=== PATIENT | female | born 1995 | race American Indian/Alaskan Native ===

== ENCOUNTER 2021-07-18 15:45 | Emergency (ER) | payer BC ==
[2021-07-18 16:30] VITALS: BP 109/70
--- NOTE | 2021-07-18 16:51 | Emergency Department Report ---
ED Female HPI - General Chief complaint: Urogenital-Female Stated complaint: UTI Time Seen by Provider: 07/18/21 16:40 Source: patient Mode of arrival: Ambulatory Limitations: No Limitations - History of Present Illness Initial comments: 26-year-old female presents to the ER today with complaints of vaginal discharge. Patient states that the symptoms started couple days ago. She describes the discharge as a white discharge. She denies any dysuria, hematuria, urinary frequency or any abnormal vaginal bleeding. She states that she only has 1 sexual partner. She states that she is not concerned for STD. She states that her last menstrual cycle was May 31, 2021. She states that she does not think she is but yet has not taken a home test. She is not currently on control. She reports no pelvic or abdominal pain or back pain, fever, chills, nausea or vomiting. MD Complaint: vaginal discharge -: days(s) (2) - Related Data Previous Rx's Medication Instructions Recorded Last Taken Type Fluconazole [Diflucan TAB] 200 mg PO QDAY #2 tablet 07/18/21 Unknown Rx Sulfamethoxazole/Trimethoprim 1 each PO BID #10 tab 07/18/21 Unknown Rx [Bactrim DS TAB] metroNIDAZOLE [Flagyl] 500 mg PO Q12HR #14 tab 07/18/21 Unknown Rx ED Review of Systems ROS: Stated complaint: UTI Other details as noted in HPI Comment: All other systems reviewed and negative Eyes: denies: eye pain, eye discharge, vision change ENT: denies: ear pain, throat pain Respiratory: denies: cough, shortness of breath, SOB with exertion, SOB at rest, wheezing Cardiovascular: denies: chest pain, palpitations Gastrointestinal: denies: abdominal pain, nausea, vomiting, diarrhea, constipation, hematemesis, melena, hematochezia Genitourinary: discharge. denies: urgency, dysuria, frequency, hematuria, abnormal menses, dyspareunia Musculoskeletal: denies: back pain, joint swelling, arthralgia Skin: denies: rash, lesions, change in color, change in hair/nails, pruritus Neurological: denies: headache, weakness, numbness, paresthesias, confusion, abnormal gait, vertigo ED Past Medical Hx - Past Medical History Previous Medical History?: No - Surgical History Past Surgical History?: No - Social History Smoking Status: Never Smoker Substance Use Type: None - Medications Home Medications: Home Medications Medication Instructions Recorded Confirmed Last Taken Type Fluconazole [Diflucan TAB] 200 mg PO QDAY #2 tablet 07/18/21 Unknown Rx Sulfamethoxazole/Trimethoprim 1 each PO BID #10 tab 07/18/21 Unknown Rx [Bactrim DS TAB] metroNIDAZOLE [Flagyl] 500 mg PO Q12HR #14 tab 07/18/21 Unknown Rx ED Physical Exam - General Limitations: No Limitations General appearance: alert, in no apparent distress - Head Head exam: Present: atraumatic, normocephalic, normal inspection - Eye Eye exam: Present: normal appearance, PERRL, EOMI Pupils: Present: normal accommodation - Respiratory Respiratory exam: Absent: respiratory distress - Cardiovascular Cardiovascular Exam: Present: regular rate - GI/Abdominal GI/Abdominal exam: Present: soft. Absent: distended, tenderness, guarding, rebound - External exam: Present: normal external exam, other (Lease Administration Supervisor present) Speculum exam: Present: vaginal discharge (Thin white discharge noted) Bi-manual exam: Present: adnexal tenderness (Mild left adnexal tenderness). Absent: cervical motion tendernes, adnexal mass, uterine enlargement, uterine tenderness - Neurological Exam Neurological exam: Present: alert, oriented X3, CN II-XII intact, normal gait - Psychiatric Psychiatric exam: Present: normal affect, normal mood - Skin Skin exam: Present: intact ED Course Vital Signs 07/18/21 16:25 Temperature 98.4 F Pulse Rate 83 Respiratory 16 Rate Blood Pressure 109/70 O2 Sat by Pulse 99 Oximetry Critical care attestation.: If time is entered above; I have spent that time in minutes in the direct care of this critically ill patient, excluding procedure time. ED Disposition Clinical Impression: Bacterial vaginosis, Yeast vaginitis, UTI (urinary tract infection) Disposition: HOME / SELF CARE / HOMELESS Is pt being admited?: No Does the pt Need Aspirin: No Condition: Stable Instructions: Bacterial Vaginosis (ED), Bacterial Vaginosis, [id number], Urinary Tract Infection, Adult, [id number], Vaginal Yeast Infection, Adult Additional Instructions: I recommend that you take the Bactrim and the Flagyl as prescribed. Please take the antibiotics with food and do not drink alcohol while she take the Flagyl as this can upset your stomach. Take the Diflucan as discussed. Follow-up with your primary care doctor. Return to the ER if symptoms changes or worsens in any way. Prescriptions: Sulfamethoxazole/Trimethoprim [Bactrim DS TAB] 1 each PO BID #10 tab Fluconazole [Diflucan TAB] 200 mg PO QDAY #2 tablet metroNIDAZOLE [Flagyl] 500 mg PO Q12HR #14 tab Referrals: PRIMARY CAREMD [Primary Care Provider] - 3-5 Days GHISLAINE MCNULTY MD [Staff Physician] - 3-5 Days Forms: STI Treatment and Prevention Time of Disposition: 18:46
[2021-07-18 18:35] LABS: Bacteria,Urine 1+ /HPF (Negative); Bilirubin,Urine NEG (Negative); Blood,Urine NEG (Negative); Color,Urine Amber (Yellow); Mucus,Urine 3+ /HPF
[2021-07-18 18:43] LABS: HCG Qualitative,Urine Negative (Negative)
== END 2021-07-18 18:58 | disposition home or self-care (01) ==
LOC: ED 15:45
DX: N76.0 Acute vaginitis (principal); B96.89 Other specified bacterial agents as the cause of diseases classified elsewhere; B37.3 Candidiasis of vulva and vagina; N39.0 Urinary tract infection, site not specified; Z79.899 Other long term (current) drug therapy
CPT/HCPCS: 81001; 81025; 87086; 87210; 99284